=== PATIENT | male | born 1955 | race Caucasian/White ===

== ENCOUNTER 2019-08-23 10:18 | Observation (INO) ==
[2019-08-23 11:21] LABS: Basophils % 0.4 %; Eosinophils # 0.3 K/mcL (0.0-0.6); Hematocrit 46.4 % (37.5-50.1); Hemoglobin 15.7 g/dL (12.9-16.9); Immature Granulocytes % 0.2 % (0-4); Lymphocytes # 2.9 K/mcL (0.6-4.6); Lymphocytes % 34.2 %; Mean Corpuscular HGB Conc 33.8 g/dL (31.6-35.5); Mean Corpuscular Hemoglobin 31.5 pg (28.0-33.3); Mean Corpuscular Volume 93.2 fL (83.0-100.0); Mean Platelet Volume 10.5 fL (9.4-12.4); Monocytes # 0.6 K/mcL (0.0-1.3); Neutrophils # 4.7 K/mcL (1.6-8.9); Platelet Count 254 K/mcL (140-400); Red Blood Count 4.98 M/mcL (4.19-5.50); Red Cell Distribution Width 13.3 % (11.5-14.5); Segmented Neutrophils % 54.2 %; White Blood Count 8.6 K/mcL (4.3-11.1)
[2019-08-23] MEDS ORDERED: Aspirin 325 MG TABLET PO ONE (11:24)
[2019-08-23 11:40] LABS: BUN/Creatinine Ratio 16 (6-26); Blood Urea Nitrogen 15 mg/dL (8-23); Calcium 9.8 mg/dL (8.6-10.3); Carbon Dioxide 28 mEq/L (23-29); Chloride 101 mEq/L (98-107); Glucose 100 mg/dL (70-105); Osmolality,Calculated 283 (280-300); Potassium 4.2 mEq/L (3.5-5.1); Sodium 136 mEq/L (136-145); eGFR For African Americans > 60 (> 60); eGFR For Non-African Americans > 60 (> 60)
[2019-08-23 11:41] LABS: Troponin I < 0.03 ng/mL (< 0.04)
[2019-08-23 11:54] LABS: Thyroid Stimulating Hormone 2.579 mcIU/mL (0.340-5.600)
[2019-08-23] MEDS ORDERED: MOM Conc 10 ML UD.LIQ PO PRN (12:26)
[2019-08-23] MEDS ORDERED: Ondansetron ODT 4 MG TAB.RAPDIS SL PRN (12:26)
[2019-08-23] MEDS ORDERED: Acetaminophen 325 MG TABLET PO PRN (12:26)
[2019-08-23] MEDS ORDERED: Mag Hydrox/Al Hydrox/Simeth 30 ML UDC PO PRN (12:26)
[2019-08-23] MEDS ORDERED: Naloxone 0.4 MG/ML INJ IVP PRN (12:26)
[2019-08-23] MEDS ORDERED: Dextrose Gel 15 GM/37.5 ML TUBE PO PRN ×2 (12:29)
[2019-08-23] MEDS ORDERED: *HR* Dextrose 50 % in Water (Vial) 50 ML VIAL IVP PRN (12:29)
[2019-08-23] MEDS ORDERED: D5% in Water 1,000 ML IVC PRN (12:29)
[2019-08-23] MEDS ORDERED: Nitroglycerin 0.4 MG TAB.SUBL SL PRN (12:30)
[2019-08-23] MEDS ORDERED: *HR* HYDROcodone/Acet 5/325 mg TABLET PO PRN (12:30)
[2019-08-23] MEDS ORDERED: Niacin (24 HR) 500 MG TAB.ER.24H PO PRN (12:30)
[2019-08-23 13:04] LABS: Estimated Average Glucose 151 mg/dl
[2019-08-23] MEDS: Nicotine 14 MG PATCH.TD24 TD SCH (13:49)
[2019-08-23] MEDS: Insulin LISPRO 300 UNITS/3 ML VIAL SQ SCH ×2 (16:00→21:54)
[2019-08-23] MEDS: carvediloL 6.25 MG TABLET PO SCH (16:12)
[2019-08-23] MEDS: *HR* Ticagrelor 90 MG TABLET PO SCH (21:53)
[2019-08-24 01:32] LABS: Hematocrit 42.9 % (37.5-50.1); Mean Corpuscular HGB Conc 32.9 g/dL (31.6-35.5); Mean Corpuscular Hemoglobin 30.7 pg (28.0-33.3); Mean Corpuscular Volume 93.5 fL (83.0-100.0); Mean Platelet Volume 10.8 fL (9.4-12.4); Platelet Count 253 K/mcL (140-400); Red Blood Count 4.59 M/mcL (4.19-5.50); Red Cell Distribution Width 13.2 % (11.5-14.5); White Blood Count 7.3 K/mcL (4.3-11.1)
[2019-08-24 01:33] LABS: Hemoglobin 14.1 g/dL (12.9-16.9)
[2019-08-24 01:53] LABS: Chol/HDL Ratio 2.9 (0-4.9)
[2019-08-24 01:54] LABS: BUN/Creatinine Ratio 19 (6-26); Blood Urea Nitrogen 20 mg/dL (8-23); Calcium 9.3 mg/dL (8.6-10.3); Carbon Dioxide 28 mEq/L (23-29); Chloride 101 mEq/L (98-107); Glucose 92 mg/dL (70-105); Magnesium 2.1 mg/dL (1.6-2.6); Osmolality,Calculated 286 (280-300); Potassium 4.1 mEq/L (3.5-5.1); Sodium 137 mEq/L (136-145); eGFR For African Americans > 60 (> 60); eGFR For Non-African Americans > 60 (> 60)
[2019-08-24] MEDS ORDERED: Regadenoson 0.4 MG/5 ML SYRINGE IVP ONE (06:25)
[2019-08-24] MEDS: Insulin LISPRO 300 UNITS/3 ML VIAL SQ SCH ×3 (09:57→16:44)
[2019-08-24] MEDS: *HR* Ticagrelor 90 MG TABLET PO SCH ×2 (09:58→20:26)
[2019-08-24] MEDS: lisinopriL 10 MG TABLET PO SCH (09:58)
[2019-08-24] MEDS: carvediloL 6.25 MG TABLET PO SCH ×2 (09:58→17:51)
[2019-08-24] MEDS: Aspirin Enteric Coated 81 MG Tablet PO SCH (09:58)
[2019-08-24] MEDS: Nicotine 14 MG PATCH.TD24 TD SCH (10:02)
[2019-08-25] MEDS: Insulin LISPRO 300 UNITS/3 ML VIAL SQ SCH ×3 (05:19→14:47)
[2019-08-25] MEDS: carvediloL 6.25 MG TABLET PO SCH (08:24)
[2019-08-25] MEDS: lisinopriL 10 MG TABLET PO SCH (08:24)
[2019-08-25] MEDS: *HR* Ticagrelor 90 MG TABLET PO SCH (08:24)
[2019-08-25] MEDS: Aspirin Enteric Coated 81 MG Tablet PO SCH (08:24)
[2019-08-25 08:46] LABS: Basophils % 0.5 %; Eosinophils # 0.2 K/mcL (0.0-0.6); Eosinophils % 2.7 %; Hematocrit 48.6 % (37.5-50.1); Immature Granulocytes % 0.1 % (0-4); Lymphocytes # 2.2 K/mcL (0.6-4.6); Lymphocytes % 26.4 %; Mean Corpuscular HGB Conc 32.5 g/dL (31.6-35.5); Mean Corpuscular Hemoglobin 30.5 pg (28.0-33.3); Mean Corpuscular Volume 93.8 fL (83.0-100.0); Monocytes # 0.6 K/mcL (0.0-1.3); Monocytes % 7.7 %; Neutrophils # 5.1 K/mcL (1.6-8.9); Platelet Count 274 K/mcL (140-400); Red Blood Count 5.18 M/mcL (4.19-5.50); Red Cell Distribution Width 13.2 % (11.5-14.5); Segmented Neutrophils % 62.6 %; White Blood Count 8.2 K/mcL (4.3-11.1)
[2019-08-25 08:54] LABS: Hemoglobin 15.8 g/dL (12.9-16.9)
[2019-08-25 09:15] LABS: BUN/Creatinine Ratio 22 (6-26); Blood Urea Nitrogen 19 mg/dL (8-23); Carbon Dioxide 25 mEq/L (23-29); Chloride 104 mEq/L (98-107); Glucose 149 mg/dL (70-105); Osmolality,Calculated 289 (280-300); Potassium 4.3 mEq/L (3.5-5.1); Sodium 137 mEq/L (136-145); eGFR For African Americans > 60 (> 60); eGFR For Non-African Americans > 60 (> 60)
[2019-08-25] MEDS ORDERED: *HR* Heparin 10,000 UNIT/10 ML VIAL ONE (12:43)
[2019-08-25] MEDS ORDERED: Nitroglycerin 1,000 MCG/10 ML VIAL IV ONE (12:43)
[2019-08-25] MEDS ORDERED: 0.9 % Sodium Chloride 2,000 ML ONE (12:43)
[2019-08-25] MEDS ORDERED: Heparin 1,000 UNITS/500 mL 500 ML ONE (12:43)
[2019-08-25] MEDS ORDERED: ISOVUE-370 200 ML INFUS..BTL ONE (12:43)
[2019-08-25] MEDS ORDERED: *HR* Midazolam HCl 2 MG/2 ML VIAL ONE (13:15)
[2019-08-25] MEDS ORDERED: *HR* FentaNYL (PF) 100 MCG/2 ML VIAL ONE (13:16)
[2019-08-25] MEDS: Nicotine 14 MG PATCH.TD24 TD SCH (14:48)
[2019-08-25 17:02] VITALS: BP 101/73
== END 2019-08-25 17:02 | disposition home or self-care (01) ==
LOC: 3BNU 10:18 → EMEROOARM 10:18 → SUATTDRO 12:27 → 3BNU 13:18
PROVIDERS: ADMIT Internal Medicine; ATTEND Internal Medicine

== ENCOUNTER 2020-01-04 08:53 | Inpatient (IN) ==
[2020-01-04 09:29] LABS: Basophils # 0.1 K/mcL (0.0-0.2); Basophils % 0.7 %; Eosinophils # 0.1 K/mcL (0.0-0.6); Eosinophils % 1.2 %; Hematocrit 37.3 % (37.5-50.1); Hemoglobin 11.6 g/dL (12.9-16.9); Immature Granulocytes % 0.8 % (0-4); Lymphocytes # 1.6 K/mcL (0.6-4.6); Lymphocytes % 15.4 %; Mean Corpuscular HGB Conc 31.1 g/dL (31.6-35.5); Mean Corpuscular Hemoglobin 30.1 pg (28.0-33.3); Mean Corpuscular Volume 96.9 fL (83.0-100.0); Mean Platelet Volume 9.8 fL (9.4-12.4); Monocytes # 0.9 K/mcL (0.0-1.3); Neutrophils # 7.6 K/mcL (1.6-8.9); Platelet Count 453 K/mcL (140-400); Red Blood Count 3.85 M/mcL (4.19-5.50); Segmented Neutrophils % 72.9 %; White Blood Count 10.4 K/mcL (4.3-11.1)
[2020-01-04 09:50] LABS: BUN/Creatinine Ratio 16 (6-26); Blood Urea Nitrogen 13 mg/dL (8-23); Carbon Dioxide 37 mEq/L (23-29); Chloride 95 mEq/L (98-107); Glucose 99 mg/dL (70-105); Osmolality,Calculated 280 (280-300); Potassium 4.2 mEq/L (3.5-5.1); Sodium 135 mEq/L (136-145); Troponin I < 0.03 ng/mL (< 0.04); eGFR For African Americans > 60 (> 60); eGFR For Non-African Americans > 60 (> 60)
[2020-01-04] MEDS ORDERED: Piperacillin/Tazobactam 3.375 GM in 0.9 % Sodium Chloride Mini Bag 100 ML IVPB ONE (10:22)
[2020-01-04] MEDS ORDERED: Naloxone 0.4 MG/ML INJ IVP PRN (14:42)
[2020-01-04] MEDS ORDERED: Dextrose Gel 15 GM/37.5 ML TUBE PO PRN ×2 (14:47)
[2020-01-04] MEDS ORDERED: D5% in Water 1,000 ML IVC PRN (14:47)
[2020-01-04] MEDS ORDERED: *HR* Dextrose 50 % in Water (Vial) 50 ML VIAL IVP PRN (14:47)
[2020-01-04 15:50] LABS: Alanine Aminotransferase 27 Units/L (7-52); Albumin 3.1 g/dL (3.5-5.7); Albumin/Globulin Ratio 0.7 (1.1-2.2); Alkaline Phosphatase 68 Units/L (34-104); Aspartate Amino Transferase 29 Units/L (13-39); Bilirubin,Direct 0.1 mg/dL (0.0-0.2); Bilirubin,Indirect 0.2 mg/dL (0.0-1.0); Bilirubin,Total 0.3 mg/dL (0.3-1.0); Globulin 4.2 g/dL (2.4-3.5); Total Protein 7.3 g/dL (6.4-8.9)
[2020-01-04] MEDS ORDERED: Gadolinium Contrast Agent (WT Based) IV PRN (16:17)
[2020-01-04] MEDS ORDERED: Isovue-370 500 ML BOTTLE IVP ONE (16:17)
[2020-01-04] MEDS ORDERED: carvediloL 6.25 MG TABLET PO SCH (17:30)
[2020-01-04] MEDS: Insulin LISPRO 300 UNITS/3 ML VIAL SQ SCH (17:34)
[2020-01-04] MEDS: *HR* Heparin 5,000 UNIT/ML VIAL SQ SCH (18:10)
[2020-01-04] MEDS: Piperacillin/Tazobactam 3.375 GM in 0.9 % Sodium Chloride Mini Bag 100 ML IVPB SCH ×2 (18:10→23:03)
[2020-01-04] MEDS: *HR* Ticagrelor 90 MG TABLET PO SCH (20:58)
[2020-01-05 04:42] LABS: Basophils # 0.1 K/mcL (0.0-0.2); Basophils % 0.6 %; Eosinophils # 0.2 K/mcL (0.0-0.6); Eosinophils % 1.9 %; Hematocrit 37.3 % (37.5-50.1); Hemoglobin 11.5 g/dL (12.9-16.9); Lymphocytes # 1.2 K/mcL (0.6-4.6); Lymphocytes % 13.7 %; Mean Corpuscular HGB Conc 30.8 g/dL (31.6-35.5); Mean Corpuscular Hemoglobin 30.3 pg (28.0-33.3); Mean Corpuscular Volume 98.2 fL (83.0-100.0); Mean Platelet Volume 9.8 fL (9.4-12.4); Monocytes # 0.8 K/mcL (0.0-1.3); Monocytes % 9.4 %; Neutrophils # 6.4 K/mcL (1.6-8.9); Platelet Count 459 K/mcL (140-400); Red Cell Distribution Width 13.2 % (11.5-14.5); Segmented Neutrophils % 73.4 %; White Blood Count 8.7 K/mcL (4.3-11.1)
[2020-01-05 04:55] LABS: BUN/Creatinine Ratio 14 (6-26); Blood Urea Nitrogen 12 mg/dL (8-23); Carbon Dioxide 37 mEq/L (23-29); Chloride 96 mEq/L (98-107); Glucose 149 mg/dL (70-105); Osmolality,Calculated 283 (280-300); Potassium 4.9 mEq/L (3.5-5.1); Sodium 135 mEq/L (136-145); eGFR For African Americans > 60 (> 60); eGFR For Non-African Americans > 60 (> 60)
[2020-01-05] MEDS: *HR* Heparin 5,000 UNIT/ML VIAL SQ SCH ×2 (05:56→17:46)
[2020-01-05] MEDS: Insulin LISPRO 300 UNITS/3 ML VIAL SQ SCH ×3 (07:38→17:42)
[2020-01-05] MEDS: *HR* Ticagrelor 90 MG TABLET PO SCH (08:29)
[2020-01-05] MEDS: Piperacillin/Tazobactam 3.375 GM in 0.9 % Sodium Chloride Mini Bag 100 ML IVPB SCH ×2 (08:30→16:11)
[2020-01-05] MEDS: Aspirin Enteric Coated 81 MG Tablet PO SCH (08:30)
[2020-01-05] MEDS ORDERED: hydroCHLOROthiazide 25 MG TABLET PO SCH (09:00)
[2020-01-05] MEDS ORDERED: lisinopriL 5 MG TABLET PO SCH (09:00)
[2020-01-05] MEDS ORDERED: Isosorbide MONOnitrate (24 HR) 30 MG TAB.ER.24H PO SCH (09:00)
[2020-01-05] MEDS ORDERED: Ipratropium/Albuterol Neb 3 ML IH PRN (10:49)
[2020-01-06] MEDS: Piperacillin/Tazobactam 3.375 GM in 0.9 % Sodium Chloride Mini Bag 100 ML IVPB SCH ×3 (00:45→16:42)
[2020-01-06 01:59] LABS: Basophils # 0.1 K/mcL (0.0-0.2); Basophils % 0.5 %; Eosinophils # 0.1 K/mcL (0.0-0.6); Hematocrit 36.3 % (37.5-50.1); Hemoglobin 11.5 g/dL (12.9-16.9); Immature Granulocytes % 0.7 % (0-4); Lymphocytes # 1.5 K/mcL (0.6-4.6); Lymphocytes % 15.6 %; Mean Corpuscular HGB Conc 31.7 g/dL (31.6-35.5); Mean Corpuscular Hemoglobin 31.2 pg (28.0-33.3); Mean Corpuscular Volume 98.4 fL (83.0-100.0); Mean Platelet Volume 9.6 fL (9.4-12.4); Monocytes # 0.9 K/mcL (0.0-1.3); Monocytes % 9.1 %; Neutrophils # 7.2 K/mcL (1.6-8.9); Platelet Count 425 K/mcL (140-400); Red Blood Count 3.69 M/mcL (4.19-5.50); Red Cell Distribution Width 13.1 % (11.5-14.5); Segmented Neutrophils % 73.1 %; White Blood Count 9.8 K/mcL (4.3-11.1)
[2020-01-06 02:20] LABS: BUN/Creatinine Ratio 14 (6-26); Blood Urea Nitrogen 11 mg/dL (8-23); Calcium 8.9 mg/dL (8.6-10.3); Carbon Dioxide 34 mEq/L (23-29); Chloride 97 mEq/L (98-107); Glucose 151 mg/dL (70-105); Osmolality,Calculated 282 (280-300); Potassium 4.4 mEq/L (3.5-5.1); Sodium 135 mEq/L (136-145); eGFR For African Americans > 60 (> 60); eGFR For Non-African Americans > 60 (> 60)
[2020-01-06] MEDS: *HR* Heparin 5,000 UNIT/ML VIAL SQ SCH ×2 (05:57→16:41)
[2020-01-06] MEDS: Insulin LISPRO 300 UNITS/3 ML VIAL SQ SCH ×3 (08:59→16:16)
[2020-01-06] MEDS: Aspirin Enteric Coated 81 MG Tablet PO SCH (09:09)
[2020-01-06] MEDS ORDERED: Acetaminophen 325 MG TABLET PO ONE (19:53)
[2020-01-07] MEDS: Piperacillin/Tazobactam 3.375 GM in 0.9 % Sodium Chloride Mini Bag 100 ML IVPB SCH ×4 (00:21→23:13)
[2020-01-07] MEDS: *HR* Heparin 5,000 UNIT/ML VIAL SQ SCH ×2 (06:16→16:32)
[2020-01-07] MEDS: Aspirin Enteric Coated 81 MG Tablet PO SCH (07:26)
[2020-01-07] MEDS: Insulin LISPRO 300 UNITS/3 ML VIAL SQ SCH ×3 (07:27→16:32)
[2020-01-08] MEDS: *HR* Heparin 5,000 UNIT/ML VIAL SQ SCH ×2 (05:23→16:46)
[2020-01-08 05:34] LABS: Basophils % 0.4 %; Eosinophils # 0.3 K/mcL (0.0-0.6); Eosinophils % 3.1 %; Hematocrit 37.5 % (37.5-50.1); Hemoglobin 11.8 g/dL (12.9-16.9); Immature Granulocytes % 0.5 % (0-4); Lymphocytes # 1.3 K/mcL (0.6-4.6); Lymphocytes % 14.3 %; Mean Corpuscular HGB Conc 31.5 g/dL (31.6-35.5); Mean Corpuscular Hemoglobin 30.9 pg (28.0-33.3); Mean Corpuscular Volume 98.2 fL (83.0-100.0); Mean Platelet Volume 9.8 fL (9.4-12.4); Monocytes # 0.8 K/mcL (0.0-1.3); Neutrophils # 6.6 K/mcL (1.6-8.9); Platelet Count 404 K/mcL (140-400); Red Blood Count 3.82 M/mcL (4.19-5.50); Segmented Neutrophils % 72.7 %; White Blood Count 9.1 K/mcL (4.3-11.1)
[2020-01-08 05:58] LABS: BUN/Creatinine Ratio 16 (6-26); Blood Urea Nitrogen 13 mg/dL (8-23); Calcium 9.4 mg/dL (8.6-10.3); Carbon Dioxide 36 mEq/L (23-29); Chloride 94 mEq/L (98-107); Glucose 154 mg/dL (70-105); Osmolality,Calculated 283 (280-300); Potassium 4.3 mEq/L (3.5-5.1); Sodium 135 mEq/L (136-145); eGFR For African Americans > 60 (> 60); eGFR For Non-African Americans > 60 (> 60)
[2020-01-08] MEDS: Piperacillin/Tazobactam 3.375 GM in 0.9 % Sodium Chloride Mini Bag 100 ML IVPB SCH ×2 (07:30→16:46)
[2020-01-08] MEDS: Aspirin Enteric Coated 81 MG Tablet PO SCH (07:31)
[2020-01-08] MEDS: Insulin LISPRO 300 UNITS/3 ML VIAL SQ SCH ×3 (07:31→16:28)
[2020-01-08] MEDS: MethylPREDNISolone 40 MG/ML VIAL IVP SCH (18:30)
[2020-01-09] MEDS: Piperacillin/Tazobactam 3.375 GM in 0.9 % Sodium Chloride Mini Bag 100 ML IVPB SCH ×4 (00:34→23:34)
[2020-01-09 05:55] LABS: Basophils % 0.4 %; Eosinophils # 0.1 K/mcL (0.0-0.6); Eosinophils % 0.9 %; Hemoglobin 11.9 g/dL (12.9-16.9); Immature Granulocytes % 0.5 % (0-4); Lymphocytes # 1.2 K/mcL (0.6-4.6); Lymphocytes % 14.3 %; Mean Corpuscular HGB Conc 31.3 g/dL (31.6-35.5); Mean Corpuscular Hemoglobin 29.8 pg (28.0-33.3); Mean Platelet Volume 9.9 fL (9.4-12.4); Monocytes # 0.4 K/mcL (0.0-1.3); Monocytes % 4.7 %; Neutrophils # 6.4 K/mcL (1.6-8.9); Platelet Count 423 K/mcL (140-400); Red Cell Distribution Width 12.9 % (11.5-14.5); Segmented Neutrophils % 79.2 %
[2020-01-09] MEDS: MethylPREDNISolone 40 MG/ML VIAL IVP SCH ×2 (06:00→18:03)
[2020-01-09] MEDS: *HR* Heparin 5,000 UNIT/ML VIAL SQ SCH ×2 (06:02→15:51)
[2020-01-09 06:08] LABS: INR 1.1; Prothrombin Time 13.2 Seconds (9.4-12.1)
[2020-01-09 06:19] LABS: BUN/Creatinine Ratio 20 (6-26); Blood Urea Nitrogen 13 mg/dL (8-23); Calcium 9.5 mg/dL (8.6-10.3); Carbon Dioxide 36 mEq/L (23-29); Chloride 93 mEq/L (98-107); Glucose 152 mg/dL (70-105); Osmolality,Calculated 283 (280-300); Potassium 4.6 mEq/L (3.5-5.1); Sodium 135 mEq/L (136-145); eGFR For African Americans > 60 (> 60); eGFR For Non-African Americans > 60 (> 60)
[2020-01-09] MEDS: Insulin LISPRO 300 UNITS/3 ML VIAL SQ SCH ×3 (07:13→18:03)
[2020-01-09] MEDS: Aspirin Enteric Coated 81 MG Tablet PO SCH (08:25)
[2020-01-09] MEDS ORDERED: *HR* Rocuronium Bromide 50 MG/5 ML VIAL ONE (11:37)
[2020-01-09] MEDS ORDERED: Lidocaine -MPF 2% 2 ML VIAL ONE (11:37)
[2020-01-09] MEDS ORDERED: Ondansetron 4 MG/2 ML VIAL ONE (11:37)
[2020-01-09] MEDS ORDERED: Dexamethasone 4 MG/ML VIAL ONE (11:37)
[2020-01-09] MEDS ORDERED: *HR* FentaNYL (PF) 100 MCG/2 ML VIAL ONE (11:37)
[2020-01-09] MEDS ORDERED: *HR* Propofol 200 MG/20 ML VIAL IVP ONE (11:37)
[2020-01-09] MEDS ORDERED: Lidocaine -MPF 4% 5 ML AMPUL ONE (11:38)
[2020-01-09] MEDS ORDERED: *HR* EPINEPHrine 1 MG/10 ML SYRINGE INTRATRACH PRN (13:05)
[2020-01-09] MEDS ORDERED: *HR* Metoprolol 5 MG/5 ML VIAL IVP ONE (13:33)
[2020-01-09] MEDS ORDERED: *HR* Labetalol 20 MG/4 ML SYRINGE IVP ONE (14:04)
[2020-01-09] MEDS ORDERED: Levalbuterol Neb 1.25 MG/3 ML IH STA (14:04)
[2020-01-09] MEDS ORDERED: Acetaminophen 325 MG TABLET PO PRN (15:44)
[2020-01-09 18:56] LABS: Source of Body Fluid LUL BAL
[2020-01-09] MEDS: Furosemide 20 MG/2 ML VIAL IVP SCH (19:55)
[2020-01-09 22:43] LABS: Appearance of Body Fluid Cloudy (Clear); Volume of Body Fluid 20 mL
[2020-01-10 02:00] LABS: Basophils % 0.1 %; Eosinophils % 0.1 %; Hematocrit 37.2 % (37.5-50.1); Hemoglobin 11.8 g/dL (12.9-16.9); Immature Granulocytes % 0.4 % (0-4); Lymphocytes # 0.9 K/mcL (0.6-4.6); Lymphocytes % 9.7 %; Mean Corpuscular HGB Conc 31.7 g/dL (31.6-35.5); Mean Corpuscular Hemoglobin 30.5 pg (28.0-33.3); Mean Corpuscular Volume 96.1 fL (83.0-100.0); Mean Platelet Volume 10.1 fL (9.4-12.4); Monocytes # 0.5 K/mcL (0.0-1.3); Monocytes % 5.2 %; Neutrophils # 7.7 K/mcL (1.6-8.9); Platelet Count 440 K/mcL (140-400); Red Blood Count 3.87 M/mcL (4.19-5.50); Red Cell Distribution Width 12.9 % (11.5-14.5); Segmented Neutrophils % 84.5 %; White Blood Count 9.1 K/mcL (4.3-11.1)
[2020-01-10 02:40] LABS: BUN/Creatinine Ratio 21 (6-26); Blood Urea Nitrogen 16 mg/dL (8-23); Calcium 9.5 mg/dL (8.6-10.3); Carbon Dioxide 38 mEq/L (23-29); Chloride 90 mEq/L (98-107); Glucose 163 mg/dL (70-105); Magnesium 2.3 mg/dL (1.6-2.6); Osmolality,Calculated 285 (280-300); Phosphorous 4.3 mg/dL (2.7-4.5); Potassium 4.5 mEq/L (3.5-5.1); Sodium 135 mEq/L (136-145); eGFR For African Americans > 60 (> 60); eGFR For Non-African Americans > 60 (> 60)
[2020-01-10] MEDS: MethylPREDNISolone 40 MG/ML VIAL IVP SCH (06:02)
[2020-01-10] MEDS: *HR* Heparin 5,000 UNIT/ML VIAL SQ SCH (06:03)
[2020-01-10] MEDS: Piperacillin/Tazobactam 3.375 GM in 0.9 % Sodium Chloride Mini Bag 100 ML IVPB SCH (10:11)
[2020-01-10] MEDS: Insulin LISPRO 300 UNITS/3 ML VIAL SQ SCH (10:11)
[2020-01-10] MEDS: Aspirin Enteric Coated 81 MG Tablet PO SCH (10:12)
[2020-01-10] MEDS: Furosemide 20 MG/2 ML VIAL IVP SCH (10:12)
[2020-01-10 11:01] VITALS: BP 111/73
== END 2020-01-10 12:52 | disposition home health service (06) | DRG 163 ==
LOC: EMEROOARM 08:53 → 2ANU 08:53 → SUATTDRO 11:33 → 2ANU 12:14 → SUATTDRO 01-06 18:20
PROVIDERS: ADMIT Family Medicine; ATTEND Internal Medicine

== ENCOUNTER 2020-01-11 11:12 | Inpatient (IN) ==
[2020-01-11] MEDS ORDERED: *HR* Ticagrelor 90 MG TABLET PO STA (11:39)
[2020-01-11 11:49] LABS: Basophils % 0.2 %; Eosinophils % 0.1 %; Hematocrit 39.2 % (37.5-50.1); Hemoglobin 12.2 g/dL (12.9-16.9); Immature Granulocytes % 0.7 % (0-4); Lymphocytes # 0.9 K/mcL (0.6-4.6); Lymphocytes % 5.4 %; Mean Corpuscular HGB Conc 31.1 g/dL (31.6-35.5); Mean Corpuscular Hemoglobin 29.5 pg (28.0-33.3); Mean Corpuscular Volume 94.7 fL (83.0-100.0); Monocytes # 0.4 K/mcL (0.0-1.3); Monocytes % 2.3 %; Neutrophils # 15.1 K/mcL (1.6-8.9); Platelet Count 454 K/mcL (140-400); Red Blood Count 4.14 M/mcL (4.19-5.50); Red Cell Distribution Width 13.5 % (11.5-14.5); Segmented Neutrophils % 91.3 %
[2020-01-11 11:51] LABS: White Blood Count 16.5 K/mcL (4.3-11.1)
[2020-01-11] MEDS ORDERED: *HR* Midazolam HCl 2 MG/2 ML VIAL ONE (12:08)
[2020-01-11] MEDS ORDERED: *HR* FentaNYL (PF) 100 MCG/2 ML VIAL ONE (12:08)
[2020-01-11 12:12] LABS: BUN/Creatinine Ratio 23 (6-26); Blood Urea Nitrogen 18 mg/dL (8-23); Calcium 9.5 mg/dL (8.6-10.3); Carbon Dioxide 36 mEq/L (23-29); Chloride 88 mEq/L (98-107); Glucose 187 mg/dL (70-105); Osmolality,Calculated 283 (280-300); Potassium 3.9 mEq/L (3.5-5.1); Sodium 133 mEq/L (136-145); Troponin I < 0.03 ng/mL (< 0.04); eGFR For African Americans > 60 (> 60); eGFR For Non-African Americans > 60 (> 60)
[2020-01-11] MEDS ORDERED: ISOVUE-370 200 ML INFUS..BTL ONE ×2 (12:15→13:37)
[2020-01-11] MEDS ORDERED: Heparin 1,000 UNITS/500 mL 500 ML ONE ×2 (12:17→13:37)
[2020-01-11] MEDS ORDERED: 0.9 % Sodium Chloride 1,000 ML ONE ×2 (12:36→13:37)
[2020-01-11] MEDS ORDERED: Naloxone 0.4 MG/ML INJ IVP PRN (12:54)
[2020-01-11] MEDS ORDERED: Ondansetron 4 MG/2 ML VIAL IVP PRN (12:54)
[2020-01-11] MEDS ORDERED: Albuterol 2.5 MG/3 ML NEBULIZER IH PRN (12:57)
[2020-01-11] MEDS ORDERED: Dextrose Gel 15 GM/37.5 ML TUBE PO PRN ×2 (12:58)
[2020-01-11] MEDS ORDERED: *HR* Dextrose 50 % in Water (Vial) 50 ML VIAL IVP PRN (12:58)
[2020-01-11] MEDS ORDERED: D5% in Water 1,000 ML IVC PRN (12:58)
[2020-01-11] MEDS ORDERED: Nitroglycerin 1,000 MCG/10 ML VIAL IV ONE (13:37)
[2020-01-11] MEDS ORDERED: *HR* Heparin 10,000 UNIT/10 ML VIAL ONE (13:37)
[2020-01-11] MEDS ORDERED: Vancomycin 2,000 MG/520 ML IV.SOLN IVPB ONE (14:12)
[2020-01-11 14:53] LABS: VBG HCO3 36 mEq/L (21-27); VBG PCO2 58 mmHg (41-51); VBG PO2 85 mmHg (25-50)
[2020-01-11] MEDS: Piperacillin/Tazobactam 3.375 GM in 0.9 % Sodium Chloride Mini Bag 100 ML IVPB SCH (15:13)
[2020-01-11] MEDS: Albuterol 2.5 MG/3 ML NEBULIZER IH SCH ×3 (15:34→23:46)
[2020-01-11] MEDS: Insulin LISPRO 300 UNITS/3 ML VIAL SQ SCH (16:49)
[2020-01-11] MEDS ORDERED: Ondansetron 4 MG/2 ML VIAL ONE (16:52)
[2020-01-11] MEDS ORDERED: *HR* Succinylcholine 200 MG/10 ML VIAL IVP ONE (16:52)
[2020-01-11] MEDS ORDERED: *HR* Propofol 200 MG/20 ML VIAL IVP ONE (16:52)
[2020-01-11] MEDS ORDERED: Lidocaine -MPF 2% 2 ML VIAL ONE (16:52)
[2020-01-11] MEDS ORDERED: Lidocaine -MPF 4% 5 ML AMPUL ONE (16:58)
[2020-01-11] MEDS ORDERED: *HR* Rocuronium Bromide 50 MG/5 ML VIAL ONE (17:39)
[2020-01-11] MEDS ORDERED: *HR* EPINEPHrine 1 MG/10 ML SYRINGE INTRATRACH PRN (18:40)
[2020-01-11] MEDS ORDERED: Ipratropium/Albuterol Neb 3 ML ONE (18:52)
[2020-01-11] MEDS: *HR* Heparin 5,000 UNIT/ML VIAL SQ SCH (19:48)
[2020-01-11] MEDS: MethylPREDNISolone 40 MG/ML VIAL IVP SCH (19:48)
[2020-01-11 20:54] LABS: RBC,Pleural Fluid 12000 RBC/mcL
[2020-01-11 23:14] LABS: Appearance of Pleural Fl Cloudy (Clear)
[2020-01-11 23:17] LABS: Basophils,Pleural Fluid 0 %; Eosinophils,Pleural Fluid 0 %; Monocytes,Pleural Fluid 0 %
[2020-01-12] MEDS: Piperacillin/Tazobactam 3.375 GM in 0.9 % Sodium Chloride Mini Bag 100 ML IVPB SCH ×3 (00:05→16:18)
[2020-01-12] MEDS: MethylPREDNISolone 40 MG/ML VIAL IVP SCH ×3 (00:05→17:03)
[2020-01-12] MEDS: Albuterol 2.5 MG/3 ML NEBULIZER IH SCH ×6 (03:14→23:56)
[2020-01-12] MEDS: Vancomycin 1,500 MG/265 ML IV.SOLN IVPB SCH ×2 (03:53→14:10)
[2020-01-12] MEDS: *HR* Heparin 5,000 UNIT/ML VIAL SQ SCH ×2 (05:26→17:03)
[2020-01-12 07:01] LABS: Basophils % 0.2 %; Hemoglobin 10.8 g/dL (12.9-16.9); Immature Granulocytes % 0.8 % (0-4); Lymphocytes # 0.6 K/mcL (0.6-4.6); Lymphocytes % 5.9 %; Mean Corpuscular HGB Conc 30.9 g/dL (31.6-35.5); Mean Corpuscular Hemoglobin 30.4 pg (28.0-33.3); Mean Corpuscular Volume 98.6 fL (83.0-100.0); Mean Platelet Volume 10.6 fL (9.4-12.4); Monocytes # 0.4 K/mcL (0.0-1.3); Monocytes % 3.9 %; Neutrophils # 9.6 K/mcL (1.6-8.9); Platelet Count 343 K/mcL (140-400); Red Blood Count 3.55 M/mcL (4.19-5.50); Red Cell Distribution Width 13.5 % (11.5-14.5); Segmented Neutrophils % 89.2 %; White Blood Count 10.8 K/mcL (4.3-11.1)
[2020-01-12 07:24] LABS: BUN/Creatinine Ratio 21 (6-26); Blood Urea Nitrogen 16 mg/dL (8-23); Carbon Dioxide 36 mEq/L (23-29); Chloride 92 mEq/L (98-107); Glucose 195 mg/dL (70-105); Osmolality,Calculated 287 (280-300); Potassium 4.2 mEq/L (3.5-5.1); Sodium 135 mEq/L (136-145); eGFR For African Americans > 60 (> 60); eGFR For Non-African Americans > 60 (> 60)
[2020-01-12] MEDS: Insulin LISPRO 300 UNITS/3 ML VIAL SQ SCH ×3 (07:56→17:02)
[2020-01-12] MEDS: *HR* Ticagrelor 90 MG TABLET PO SCH ×2 (12:25→20:22)
[2020-01-12] MEDS: Aspirin Enteric Coated 81 MG Tablet PO SCH (12:26)
[2020-01-12] MEDS: Isosorbide MONOnitrate (24 HR) 30 MG TAB.ER.24H PO SCH (12:26)
[2020-01-12] MEDS ORDERED: Perflutren Lipid Microsphere 1.3 ML in 0.9 % Sodium Chloride 8.7 ML IVP PRN (13:58)
[2020-01-12] MEDS ORDERED: Acetaminophen 325 MG TABLET PO ONE (16:33)
[2020-01-12] MEDS: carvediloL 6.25 MG TABLET PO SCH (20:22)
[2020-01-13] MEDS: Piperacillin/Tazobactam 3.375 GM in 0.9 % Sodium Chloride Mini Bag 100 ML IVPB SCH ×3 (00:44→15:26)
[2020-01-13] MEDS: Vancomycin 1,500 MG/265 ML IV.SOLN IVPB SCH ×2 (02:30→15:12)
[2020-01-13] MEDS: Albuterol 2.5 MG/3 ML NEBULIZER IH SCH ×6 (03:53→23:37)
[2020-01-13] MEDS: MethylPREDNISolone 40 MG/ML VIAL IVP SCH ×2 (06:23→17:13)
[2020-01-13] MEDS: *HR* Heparin 5,000 UNIT/ML VIAL SQ SCH ×2 (06:24→17:05)
[2020-01-13] MEDS: Isosorbide MONOnitrate (24 HR) 30 MG TAB.ER.24H PO SCH (08:14)
[2020-01-13] MEDS: *HR* Ticagrelor 90 MG TABLET PO SCH ×2 (08:14→20:07)
[2020-01-13] MEDS: Aspirin Enteric Coated 81 MG Tablet PO SCH (08:14)
[2020-01-13] MEDS: carvediloL 6.25 MG TABLET PO SCH ×2 (08:14→20:07)
[2020-01-13] MEDS: Insulin LISPRO 300 UNITS/3 ML VIAL SQ SCH ×4 (08:14→23:12)
[2020-01-13] MEDS: lisinopriL 5 MG TABLET PO SCH (08:15)
[2020-01-13] MEDS ORDERED: Furosemide 20 MG TABLET PO SCH (09:00)
[2020-01-13] MEDS: hydrOXYzine pamoate 25 MG CAPSULE PO PRN ×2 (11:12→20:09)
[2020-01-13] MEDS ORDERED: *HR* LORazepam 2 MG/ML VIAL IVP ONE (13:27)
[2020-01-13] MEDS: *HR* HYDROcodone/Acet 5/325 mg TABLET PO PRN ×2 (13:39→20:06)
[2020-01-13] MEDS: Furosemide 20 MG/2 ML VIAL IVP SCH (15:25)
[2020-01-13] MEDS: Vancomycin 1,750 MG/517.5 ML IV.SOLN IVPB SCH (15:26)
[2020-01-14] MEDS: Ibuprofen 600 MG TABLET PO PRN ×2 (00:13→08:37)
[2020-01-14] MEDS: Piperacillin/Tazobactam 3.375 GM in 0.9 % Sodium Chloride Mini Bag 100 ML IVPB SCH ×3 (00:13→16:42)
[2020-01-14 01:23] LABS: Basophils % 0.1 %; Eosinophils # 0.1 K/mcL (0.0-0.6); Eosinophils % 0.4 %; Hematocrit 35.4 % (37.5-50.1); Hemoglobin 11.1 g/dL (12.9-16.9); Immature Granulocytes % 0.8 % (0-4); Lymphocytes % 6.2 %; Mean Corpuscular HGB Conc 31.4 g/dL (31.6-35.5); Mean Corpuscular Hemoglobin 30.1 pg (28.0-33.3); Mean Corpuscular Volume 95.9 fL (83.0-100.0); Mean Platelet Volume 10.3 fL (9.4-12.4); Monocytes # 0.7 K/mcL (0.0-1.3); Monocytes % 4.3 %; Neutrophils # 13.8 K/mcL (1.6-8.9); Platelet Count 328 K/mcL (140-400); Red Blood Count 3.69 M/mcL (4.19-5.50); Red Cell Distribution Width 13.7 % (11.5-14.5); Segmented Neutrophils % 88.2 %; White Blood Count 15.6 K/mcL (4.3-11.1)
[2020-01-14 01:44] LABS: BUN/Creatinine Ratio 17 (6-26); Blood Urea Nitrogen 11 mg/dL (8-23); Carbon Dioxide 35 mEq/L (23-29); Chloride 90 mEq/L (98-107); Glucose 181 mg/dL (70-105); Osmolality,Calculated 278 (280-300); Potassium 4.1 mEq/L (3.5-5.1); Sodium 132 mEq/L (136-145); eGFR For African Americans > 60 (> 60); eGFR For Non-African Americans > 60 (> 60)
[2020-01-14] MEDS: Vancomycin 1,750 MG/517.5 ML IV.SOLN IVPB SCH ×2 (02:32→14:57)
[2020-01-14] MEDS: Albuterol 2.5 MG/3 ML NEBULIZER IH SCH ×6 (03:29→23:36)
[2020-01-14] MEDS: *HR* Heparin 5,000 UNIT/ML VIAL SQ SCH ×2 (05:35→18:14)
[2020-01-14] MEDS: MethylPREDNISolone 40 MG/ML VIAL IVP SCH ×2 (05:36→18:13)
[2020-01-14] MEDS: *HR* HYDROcodone/Acet 10/325 mg TABLET PO PRN ×2 (05:37→16:42)
[2020-01-14] MEDS: Aspirin Enteric Coated 81 MG Tablet PO SCH (08:33)
[2020-01-14] MEDS: *HR* Ticagrelor 90 MG TABLET PO SCH ×2 (08:34→20:12)
[2020-01-14] MEDS: Furosemide 20 MG/2 ML VIAL IVP SCH (08:34)
[2020-01-14] MEDS: Isosorbide MONOnitrate (24 HR) 30 MG TAB.ER.24H PO SCH (08:34)
[2020-01-14] MEDS: lisinopriL 5 MG TABLET PO SCH (08:34)
[2020-01-14] MEDS: carvediloL 6.25 MG TABLET PO SCH ×2 (08:34→20:12)
[2020-01-14] MEDS: Insulin LISPRO 300 UNITS/3 ML VIAL SQ SCH ×4 (08:47→20:04)
[2020-01-14] MEDS ORDERED: Isovue-370 500 ML BOTTLE IVP ONE (10:14)
[2020-01-14] MEDS: hydrOXYzine pamoate 25 MG CAPSULE PO PRN (20:12)
[2020-01-14] MEDS ORDERED: Furosemide 20 MG/2 ML VIAL IVP ONE (21:00)
[2020-01-15] MEDS: Piperacillin/Tazobactam 3.375 GM in 0.9 % Sodium Chloride Mini Bag 100 ML IVPB SCH ×2 (00:33→08:06)
[2020-01-15] MEDS: *HR* HYDROcodone/Acet 10/325 mg TABLET PO PRN ×2 (00:34→10:07)
[2020-01-15 02:19] LABS: Basophils # 0.1 K/mcL (0.0-0.2); Basophils % 0.3 %; Eosinophils % 0.1 %; Hemoglobin 10.3 g/dL (12.9-16.9); Lymphocytes # 0.8 K/mcL (0.6-4.6); Lymphocytes % 4.3 %; Mean Corpuscular HGB Conc 31.2 g/dL (31.6-35.5); Mean Corpuscular Hemoglobin 30.6 pg (28.0-33.3); Mean Corpuscular Volume 97.9 fL (83.0-100.0); Mean Platelet Volume 10.7 fL (9.4-12.4); Monocytes # 0.9 K/mcL (0.0-1.3); Monocytes % 5.3 %; Neutrophils # 15.6 K/mcL (1.6-8.9); Platelet Count 333 K/mcL (140-400); Red Blood Count 3.37 M/mcL (4.19-5.50); Red Cell Distribution Width 13.9 % (11.5-14.5); White Blood Count 17.5 K/mcL (4.3-11.1)
[2020-01-15 02:41] LABS: BUN/Creatinine Ratio 25 (6-26); Blood Urea Nitrogen 21 mg/dL (8-23); Calcium 8.8 mg/dL (8.6-10.3); Carbon Dioxide 35 mEq/L (23-29); Chloride 92 mEq/L (98-107); Glucose 255 mg/dL (70-105); Osmolality,Calculated 292 (280-300); Potassium 4.2 mEq/L (3.5-5.1); Sodium 135 mEq/L (136-145); eGFR For African Americans > 60 (> 60); eGFR For Non-African Americans > 60 (> 60)
[2020-01-15] MEDS: Albuterol 2.5 MG/3 ML NEBULIZER IH SCH ×6 (03:27→23:43)
[2020-01-15] MEDS: Vancomycin 1,750 MG/517.5 ML IV.SOLN IVPB SCH (03:30)
[2020-01-15] MEDS: Ibuprofen 600 MG TABLET PO PRN (03:37)
[2020-01-15] MEDS: MethylPREDNISolone 40 MG/ML VIAL IVP SCH ×2 (05:13→16:59)
[2020-01-15] MEDS: *HR* Heparin 5,000 UNIT/ML VIAL SQ SCH ×2 (05:13→17:00)
[2020-01-15] MEDS: lisinopriL 5 MG TABLET PO SCH (08:05)
[2020-01-15] MEDS: carvediloL 6.25 MG TABLET PO SCH ×2 (08:05→20:43)
[2020-01-15] MEDS: *HR* Ticagrelor 90 MG TABLET PO SCH ×2 (08:06→20:42)
[2020-01-15] MEDS: Aspirin Enteric Coated 81 MG Tablet PO SCH (08:06)
[2020-01-15] MEDS: Isosorbide MONOnitrate (24 HR) 30 MG TAB.ER.24H PO SCH (08:06)
[2020-01-15] MEDS: Insulin LISPRO 300 UNITS/3 ML VIAL SQ SCH ×4 (08:07→20:44)
[2020-01-15] MEDS ORDERED: Furosemide 40 MG/4 ML VIAL IVP SCH (09:00)
[2020-01-15] MEDS ORDERED: Ketorolac 30 MG/ML VIAL IVP ONE (11:54)
[2020-01-15] MEDS ORDERED: *HR* Promethazine 25 MG/ML VIAL IM ONE (11:54)
[2020-01-15] MEDS ORDERED: *HR* Promethazine 25 MG/ML VIAL IM PRN (14:40)
[2020-01-15] MEDS: Doxycycline 100 MG CAPSULE PO SCH (20:42)
[2020-01-16] MEDS: Albuterol 2.5 MG/3 ML NEBULIZER IH SCH ×3 (03:20→11:42)
[2020-01-16 04:53] LABS: Basophils % 0.2 %; Eosinophils % 0.1 %; Hematocrit 33.4 % (37.5-50.1); Hemoglobin 10.3 g/dL (12.9-16.9); Lymphocytes # 1.3 K/mcL (0.6-4.6); Mean Corpuscular HGB Conc 30.8 g/dL (31.6-35.5); Mean Corpuscular Hemoglobin 30.2 pg (28.0-33.3); Mean Corpuscular Volume 97.9 fL (83.0-100.0); Mean Platelet Volume 10.8 fL (9.4-12.4); Monocytes # 1.4 K/mcL (0.0-1.3); Monocytes % 8.8 %; Neutrophils # 13.4 K/mcL (1.6-8.9); Platelet Count 336 K/mcL (140-400); Red Blood Count 3.41 M/mcL (4.19-5.50); Red Cell Distribution Width 14.1 % (11.5-14.5); Segmented Neutrophils % 81.9 %; White Blood Count 16.3 K/mcL (4.3-11.1)
[2020-01-16 05:08] LABS: BUN/Creatinine Ratio 32 (6-26); Blood Urea Nitrogen 21 mg/dL (8-23); Calcium 8.5 mg/dL (8.6-10.3); Carbon Dioxide 35 mEq/L (23-29); Chloride 96 mEq/L (98-107); Glucose 223 mg/dL (70-105); Osmolality,Calculated 292 (280-300); Potassium 3.8 mEq/L (3.5-5.1); Sodium 136 mEq/L (136-145); eGFR For African Americans > 60 (> 60); eGFR For Non-African Americans > 60 (> 60)
[2020-01-16] MEDS: MethylPREDNISolone 40 MG/ML VIAL IVP SCH (05:57)
[2020-01-16] MEDS: *HR* Heparin 5,000 UNIT/ML VIAL SQ SCH (05:57)
[2020-01-16] MEDS: Insulin LISPRO 300 UNITS/3 ML VIAL SQ SCH ×2 (08:07→12:27)
[2020-01-16] MEDS: Doxycycline 100 MG CAPSULE PO SCH (08:07)
[2020-01-16] MEDS: *HR* Ticagrelor 90 MG TABLET PO SCH (08:08)
[2020-01-16] MEDS: Aspirin Enteric Coated 81 MG Tablet PO SCH (08:08)
[2020-01-16] MEDS: carvediloL 6.25 MG TABLET PO SCH (08:09)
[2020-01-16] MEDS: Isosorbide MONOnitrate (24 HR) 30 MG TAB.ER.24H PO SCH (08:09)
[2020-01-16] MEDS: lisinopriL 5 MG TABLET PO SCH (08:10)
[2020-01-16] MEDS ORDERED: Furosemide 40 MG TABLET PO SCH (09:00)
[2020-01-16] MEDS ORDERED: polyethylene glycoL 3350 17 GM POWD.PACK PO PRN (09:49)
[2020-01-16] MEDS ORDERED: Sennosides/Docusate Sodium TABLET PO SCH (10:00)
[2020-01-16 11:43] VITALS: BP 93/53
== END 2020-01-16 12:50 | disposition home health service (06) | DRG 871 ==
LOC: EMEROOARM 11:12 → 3BNU 11:12 → SUATTDRO 12:42 → 2ANU 01-12 13:19
PROVIDERS: ADMIT Internal Medicine; ATTEND Internal Medicine